=== PATIENT | female | born 1930 ===

== ENCOUNTER 2019-01-11 06:14 | Inpatient (IN) ==
[2019-01-11] MEDS ORDERED: Albuterol 2.5 MG/3 ML NEBULIZER IH ONE (06:37)
[2019-01-11] MEDS ORDERED: CeFAZolin Syr 2,000MG/20 ML 2,000 MG/20 ML SYRINGE IVPB ONE (06:37)
[2019-01-11] MEDS ORDERED: Ringers Solution, Lactated 1,000 ML IVC SCH (06:45)
[2019-01-11] MEDS ORDERED: *HR* FentaNYL (PF) 100 MCG/2 ML VIAL ONE (06:45)
[2019-01-11] MEDS ORDERED: *HR* Propofol 200 MG/20 ML VIAL IVP ONE (06:45)
[2019-01-11] MEDS ORDERED: *HR* Succinylcholine 200 MG/10 ML VIAL IVP ONE (06:46)
[2019-01-11] MEDS ORDERED: Lidocaine -MPF 4% 5 ML AMPUL ONE (06:46)
[2019-01-11] MEDS ORDERED: Lidocaine -MPF 2% 2 ML VIAL ONE ×2 (06:46→10:27)
[2019-01-11] MEDS ORDERED: Dexamethasone 4 MG/ML VIAL ONE (06:46)
[2019-01-11] MEDS ORDERED: Ondansetron 4 MG/2 ML VIAL ONE (06:46)
[2019-01-11] MEDS ORDERED: *HR* Phenylephrine 10 MG/ML VIAL ONE (06:54)
[2019-01-11] MEDS ORDERED: Famotidine 20 MG/2 ML VIAL IVP ONE (07:05)
[2019-01-11] MEDS ORDERED: *HR* Labetalol 20 MG/4 ML SYRINGE IVP PRN ×2 (07:05→13:10)
[2019-01-11] MEDS ORDERED: *HR* HYDROmorphone (PF) 1 MG/ML SYRINGE IVP PRN (07:05)
[2019-01-11] MEDS ORDERED: *HR* Promethazine 25 MG/ML VIAL IVP PRN ×2 (07:05→13:10)
[2019-01-11] MEDS ORDERED: Ondansetron 4 MG/2 ML VIAL IVP ONE (07:05)
[2019-01-11] MEDS ORDERED: Acetaminophen IV 1,000 MG/100 ML INFUS..BTL IVPB ONE (07:05)
[2019-01-11] MEDS ORDERED: *HR* OxyCODONE Immed Rel 5 MG TABLET PO PRN ×2 (07:05→13:10)
[2019-01-11] MEDS ORDERED: Heparin 1,000 UNITS/500 mL 2,000 ML ONE (07:20)
--- NOTE | 2019-01-11 07:20 | Anesthesia Evaluation PreOp ---
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, BLE weakness and initially speech problems but since resolved) Other Medical History: Renal (CKD stage 3), GERD Anesthesia History: No Prior Anesthetic Complications, Past Anesthesia : No Alcohol Use: none Drug use: none Medications and Allergies Amlodipine Besylate 5 mg PO DAILY 12/17/15 [History] Ferrous Sulfate [Iron] 325 mg PO BID 12/17/15 [History] Metoprolol [Lopressor] 50 mg PO DAILY 12/17/15 [History] Mirtazapine [Remeron] 15 mg PO HS 12/17/15 [History] Paroxetine [Paxil] 20 mg PO DAILY 12/17/15 [History] Sennosides/Docusate Sodium [Senna Plus] 1 each PO BID PRN 12/17/15 [History] Sertraline [Zoloft] 25 mg PO DAILY 12/17/15 [History] HYDROcodone/Acet 5/325 mg [[place] 5-325 mg] 1 tab PO Q6H PRN #25 tablet 12/22/15 [Rx] Omeprazole [PriLOSEC] 20 mg PO DAILY #30 capsule 12/22/15 [Rx] Acetaminophen [Tylenol] 650 mg PO BID PRN 12/27/18 [History] Allopurinol [Zyloprim 100 MG] 200 mg PO DAILY 12/27/18 [History] Aspirin [Lo-Dose Aspirin EC] 81 mg PO DAILY 12/27/18 [History] Cholecalciferol (D-3) [Vitamin D] 5,000 unit PO DAILY 12/27/18 [History] Clopidogrel [Plavix] 75 mg PO DAILY #30 tablet 12/27/18 [Rx] Cyanocobalamin/Folic AC/Vit B6 [Folbic Tablet] 1 each PO BID 12/27/18 [History] Doxycycline Hyclate [Vibramycin] 100 mg PO BID 12/27/18 [History] Furosemide [Lasix] 20 mg PO DAILY PRN 12/27/18 [History] Menthol/Zinc Oxide [Calmoseptine Ointment Packet] 3.5 gm TP TID PRN 12/27/18 [History] Potassium Chloride [Klor-Con 10] 10 meq PO DAILY 12/27/18 [History] Allergy/AdvReac Type Severity Reaction Status Date / Time Jdfdarg-[id number]-Mgf Reductase AdvReac Muscle Pain Verified 12/21/15 08:28 Inhibitor [Statins] - Meds/Allergy Pre-op Review Medications Reviewed: Yes Allergies Reviewed: Yes Beta Blockers on Current Med List: Yes (metoprolol) If Beta Blockers taken, Date/Time (Last Dose taken): 0900 01/10/2019 Anesthesia Results - Labs Laboratory Tests 01/08/19 01/08/19 01/08/19 11:40 11:40 11:40 WBC 8.4 Hgb 13.9 Hct 44.4 Plt Count 279 PT 10.5 INR 0.9 APTT 31.2 Sodium 141 Potassium 4.5 Chloride 105 Carbon Dioxide 27 BUN 32 H Creatinine 1.48 H Est GFR (Non-Af Amer) 33 L - Imaging EKG: report reviewed Additional studies: stress 12/2018 Impression: No ischemia or infarct on perfusion study. Stress LVEF >70%. Pharmacologic stress ECG non-diagnostic for ischemia. echo Impressions: LVEF 60%. Normal left ventricular size and systolic function. There is evidence of mild diastolic dysfunction of the left ventricle. RV size is not well visualized, grossly there is mild reduction in function. No significant valvular dysfunction. Estimated RVSP was 38 mmHg. Mild pulmonary hypertension. A linear echodensity consistent with a pacer lead was seen in the right atrium and right ventricle. Anesthesia Exam Vital Signs/O2 Sat/Glucose, Most Recent Temp Pulse Resp BP Pulse Ox 98.3 F 86 18 164/83 93 01/11/19 07:14 01/11/19 07:14 01/11/19 07:14 01/11/19 07:14 01/11/19 07:14 - HEENT Pupil (Motor): Pupils equal Mallampati: II Denture Type: Upper: Complete, Lower: Complete - WEIGHT AND BALANCE CONTROL AGENT LOC: Oriented - Cardiac Rhythm: Regular Murmur: None - Pulmonary Breath Sounds: bilateral Clear Respiratory Effort: Symmetrical Anesthesia Assess/Plan ASA Score: 3 Level of consciousness: Cooperative, Oriented Anesthetic Plan: General Monitoring Plan: A-Line Recovery Plan: PACU
[2019-01-11] MEDS ORDERED: *HR* Heparin 5,000 UNIT/ML VIAL ONE ×2 (07:21→07:59)
[2019-01-11] MEDS ORDERED: Vancomycin 1,000 MG, Sodium Chloride IRRigation 1,000 ML IR ONE (07:45)
--- NOTE | 2019-01-11 07:46 | History & Physical Report ---
Date of Encounter: 01/11/19 Time of Encounter: 07:28 24 Hour HP Update - Instructions Instructions: If the History and Physical is less than 30 days old and was completed prior to A.M. admission and or procedure and has NOT been updated on calendar day of procedure please complete this update prior to performing procedure. - Update Patient reports changes in Medical Condition: No Changes in examination, assessment, or condition: No Changes in Medication: No Preop tests/diagnostics Reviewed: Yes Surgery Remains Indicated: Yes Consent for Planned Operative Procedure(s) Verified: Yes - Pre-Operative Checklist Preoperative Checklist Indicated: Yes Prophylactic Antibiotic Ordered: Yes (vancomycin due to risk of MRSA) Home Medications Include Beta Nikhil: Yes Beta Nikhil Taken Today (Day of Surgery): Yes Beta Nikhil Taken Yesterday (Day Prior to Surgery): Yes Is VTE Prophylaxis Indicated?: Yes
--- NOTE | 2019-01-11 08:58 | Anesthesia Procedures ---
Date of Encounter: 01/11/19 Time of Encounter: 08:15 Procedures: Anesthesia - Arterial Line Size (Gauge): 20 Length (inches): 1 3/4 Technique Used: sterile prep, guide wire technique, direct puncture technique Post-Procedure: line taped into place, dry sterile dressing placed Patient tolerated procedure: well Complications: none Site: Radial L
[2019-01-11] MEDS ORDERED: Vancomycin 1,000 MG VIAL ONE (09:13)
--- NOTE | 2019-01-11 11:16 | Operative Note ---
Date of procedure: 01/11/19 Pre-op diagnosis: Peripheral vascular disease with ulceration Post-op diagnosis: same Procedure: 1. Left iliofemoral endarterectomy. 2. Left common femoral to below-knee popliteal artery bypass with 6 mm ring reinforced PTFE Distaflo mini-cuff graft Complications: None Anesthesia: GETA Surgeon: Rusty Puente Was there an engineer first assistant present: Yes Manager Retail Sales: Franck Mclean Estimated blood loss (cc): 50 Specimen: Left lower extremity plaque Condition: stable Disposition: PACU Procedure in Detail: Indications: The patient is an 80-year-old female with multiple medical comorbid disease who was found to have peripheral vascular disease with rest pain and a nonhealing left ankle ulcer. She was found to have a left superficial femoral and proximal popliteal artery occlusion. Procedure: The patient was identified in the preoperative area. The risks, benefits, and alternatives of the procedure were discussed. All questions were answered. The patient was taken to the operating room and placed in supine position on the operating room table. After the induction of general endotracheal anesthesia, he was cleaned and draped in normal sterile fashion. An oblique incision was made over the left groin sharply. Hemostasis was obtained with electrocautery. Through a process of blunt, sharp, and electrocautery dissection, the left femoral vessels were dissected circumferentially and surrounded with vessel loops. An incision was made on the left medial calf sharply. Hemostasis was obtained with electrocautery. Through a process of blunt, sharp, and electrocautery dissection, the left below-knee popliteal artery was dissected proximally and distally and surrounded with vessel loops. A graft was tunneled between the popliteal and femoral incisions. The patient received 5000 units of heparin intravenously. Additional heparin was given throughout the case to maintain adequate anticoagulation. The popliteal vessels were occluded and a longitudinal arteriotomy was made in the popliteal artery. The distal end of the graft was sutured in place with a running 6-0 Prolene, but not tied. Heparinized saline was infused into the lumen. Tension was then applied to the femoral artery loops. An arteriotomy was made in the common femoral artery and extended proximally to the external iliac artery. The patient was noted to have a dense, calcified irregular and pa rtially occlusive plaque within the common femoral artery. Due to the degree of stenosis and flow was diminished upon release of the vessel loop. Given this finding a dental Antoine was used to perform an iliofemoral endarterectomy. Distal endpoints were inspected and no elevated flaps were noted. Release of the vessel loop revealed strong pulsatile antegrade flow. The proximal end of the bypass graft was cut to fit the arteriotomy. The graft and sutured in place with a running 6-0 Prolene. After completing the anastomosis, the femoral arteries were flushed through the distal anastomosis portion of the graft. Heparin was then infused into the lumen. The graft was clamped with an atraumatic clamp. Thrombin and gelfoam were used at the proximal anastamosis. The distal arterial anastomosis suture line was completed. Prior to completing the closure, the popliteal arteries were flushed and reoccluded. Heparinized saline was infused into the lumen. The anastamosis was tied and then flow was restored. Polyphasic signals were noted distal to the distal anastomosis as well as at the posterior tibial artery. Wounds were irrigated with antibiotic-containing saline. Thrombin and gelfoam were used to aid in hemostasis. Platelet rich and platelet poor plasma were infused into the wounds. Meticulous hemostasis was obtained throughout the wound with electrocautery. Wounds were reapproximated with layers of 2-0 and 3-0 Vicryl. Skin was reapproximated with 3-0 Monocryl. Sterile dressing was applied. The patient was extubated and taken to recovery room in stable condition.
[2019-01-11] MEDS ORDERED: Protamine Sulfate 50 MG/5 ML VIAL IVP ONE ×2 (11:49→11:51)
[2019-01-11] MEDS ORDERED: OXYCODONE Oral CONC 10 MG/0.5 ML ORAL.SYG SL PRN ×2 (13:10)
[2019-01-11] MEDS ORDERED: Furosemide 20 MG TABLET PO PRN (13:10)
[2019-01-11] MEDS ORDERED: *HR* HYDROcodone/Acet 5/325 mg TABLET PO PRN (13:10)
[2019-01-11] MEDS ORDERED: Naloxone 0.4 MG/ML INJ IVP PRN (13:10)
[2019-01-11] MEDS ORDERED: Sennosides/Docusate Sodium TABLET PO PRN (13:10)
[2019-01-11] MEDS ORDERED: 0.9 % Sodium Chloride 1,000 ML IVC SCH (13:10)
[2019-01-11] MEDS ORDERED: Acetaminophen 325 MG TABLET PO PRN (13:10)
[2019-01-11] MEDS: *HR* Metoprolol 5 MG/5 ML VIAL IVP SCH ×2 (13:52→17:37)
--- NOTE | 2019-01-11 13:55 | Operative Note ---
Date of procedure: 01/11/19 Pre-op diagnosis: PAD/left ankle wound Post-op diagnosis: same Procedure: Left iliofemoral endarterectomy Left femoral to below-knee popliteal artery bypass graft with 6 mm PTFE Complications: None Anesthesia: GETA Surgeon: Rusty Puente Co-Surgeon: Franck Mclean Was there an assistant associate professor present: No Estimated blood loss (cc): 50 Specimen: Left lower extremity atherosclerotic plaque Condition: stable Disposition: PACU Procedure in Detail: History Vivian Noble is an 88-year-old white female with a non-healing left ankle wound and severe peripheral vascular occlusive disease. The patient was identified by angiogram to have a non-reconstructable lesion by endovascular means and she now comes to the operating room for direct bypass grafting. Procedure After informed consent was obtained the patient was taken the operating room. General endotracheal anesthesia was established. The left lower extremity was sterilely prepped and draped. A timeout protocol was performed per. A 2 team surgical approach was utilized for this procedure. This was done because of the patient's multiple comorbid conditions as well as the need for complex intraoperative decision-making and to minimize, cases associated with prolonged general anesthesia and to reduce blood loss. An incision was made in the left groin and a second incision made in the [id number]-wpx-[id number] popliteal artery simultaneously. Dissection was carried down to reveal diseased vessels are relatively small in size. The common femoral artery demonstrated dense and thick plaque formation. After controls obtained of these vessels a subsartorial tunnel was then created. Heparin was administered in a dose of 5000 units intravenously. After 3 minute delay the vessels were clamped. While the distal anastomosis was being created at the [id number] popliteal artery a left common femoral and external iliac artery endarterectomy was being performed. The graft selected was a 6 mm PTFE Distaflo graft. This was passed through the tunnel prior to the administration of heparin. After appropriate backbleeding and flushing the graft was opened. Pulsatile flow was restored into the popliteal system. Excellent Doppler signal was identified at the posterior tibial artery. The incisions were then irrigated with antibody containing solution. Marcaine was infiltrated into the wound edges. The incisions were then closed using absorbable suture. Dry sterile dressings were applied. There were no intraoperative complications. The patient was taken from the operating room to the recovery room in stable condition.
[2019-01-11] MEDS ORDERED: 0.9 % Sodium Chloride 500 ML IVC SCH (14:45)
--- NOTE | 2019-01-11 17:27 | Event Note ---
Date of Encounter: 01/11/19 Time of Encounter: 16:20 The patient was seen and examined. She is resting comfortably. She has no significant hematoma. Her compartments are soft. Her left posterior tibial signal is polyphasic. The patient received intravenous hydration. She was previously a clear diet tonight. She will have repeat labs in the morning. She will likely be discharged tomorrow if stable.
[2019-01-11] MEDS: Vitamin B Complex/Vit C/Vit E 1 EACH TABLET PO SCH (19:48)
[2019-01-11] MEDS ORDERED: Mirtazapine 15 MG TABLET PO SCH (21:00)
[2019-01-12] MEDS: *HR* Metoprolol 5 MG/5 ML VIAL IVP SCH ×2 (00:16→06:11)
[2019-01-12] MEDS ORDERED: 0.9 % Sodium Chloride 500 ML IVC ONE (05:49)
[2019-01-12] MEDS ORDERED: 0.9 % Sodium Chloride 500 ML ONE (05:53)
[2019-01-12] MEDS ORDERED: *HR* Heparin 5,000 UNIT/ML VIAL SQ SCH ×2 (06:00)
[2019-01-12 06:12] LABS: Basophils % 0.2 %; Immature Granulocytes % 0.3 % (0-4); Lymphocytes # 1.1 K/mcL (0.6-4.6); Lymphocytes % 8.4 %; Mean Corpuscular HGB Conc 30.4 g/dL (31.6-35.5); Mean Corpuscular Hemoglobin 30.3 pg (28.0-33.3); Mean Corpuscular Volume 99.6 fL (83.0-100.0); Mean Platelet Volume 11.6 fL (9.4-12.4); Neutrophils # 10.6 K/mcL (1.6-8.9); Platelet Count 172 K/mcL (140-400); Red Blood Count 2.71 M/mcL (3.82-4.97); Red Cell Distribution Width 15.9 % (11.5-14.5); Segmented Neutrophils % 83.1 %
[2019-01-12 06:19] LABS: Hemoglobin 8.2 g/dL (11.5-15.4)
[2019-01-12 06:28] LABS: Calcium 8.9 mg/dL (8.6-10.3); Potassium 5.4 mEq/L (3.5-5.1)
[2019-01-12] MEDS ORDERED: 0.9 % Sodium Chloride 1,000 ML IVC SCH (06:45)
[2019-01-12] MEDS: Vitamin B Complex/Vit C/Vit E 1 EACH TABLET PO SCH (07:58)
[2019-01-12] MEDS ORDERED: amLODIPine 5 MG TABLET PO SCH (09:00)
[2019-01-12] MEDS ORDERED: Aspirin Enteric Coated 81 MG Tablet PO SCH (09:00)
[2019-01-12] MEDS ORDERED: Cholecalciferol (D-3) 1,000 UNIT TABLET PO SCH (09:00)
[2019-01-12] MEDS ORDERED: 0.9 % Sodium Chloride 250 ML ONE (09:12)
--- NOTE | 2019-01-12 10:12 | Vascular/[facility] Progress Note ---
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 She is postoperative day #1 after left femoral-popliteal artery bypass grafting. She has polyphasic pedal signals. (2) CKD (chronic kidney disease), stage III Current Visit: Yes Status: Chronic The patient has chronic kidney disease stage III. She is a low urine output overnight. Her creatinine has increased. She is likely a depleted. Given her chronic kidney disease with elevated creatinine she will receive 1 unit of p acked red blood cells and intravenous fluids. We will recheck her creatinine in the afternoon. - Subjective Interval history: The patient is alert and comfortable. She denies any significant leg pain. She is tolerating a diet. She denies any chest pain or shortness of breath. Vital Signs, Last 4 Hours Temp Pulse Resp BP Pulse Ox 01/12/19 09:51 98.2 F 68 16 110/44 100 01/12/19 09:36 97.6 F 67 16 131/52 100 01/12/19 07:54 97.9 F 91 16 133/50 100 - Physical Examination General: Present: Conversant Neck: Absent: JVD Cardiac: Present: Reg Rate and Rhythm Lungs: Present: Normal Breath Sounds Neuro: Present: Alert and responsive, No focal deficits noted Vascular: Present: Pulse, diminished (Right pedal signals are biphasic), Pulse, normal (Left pedal signals are polyphasic), Surgical incisions (Clean, dry and intact without erythema or drainage, no significant hematoma, expected ecchymosis present, compartments soft) Abdomen: Present: Soft, Non-tender Skin: Present: No rashes noted on visualized skin Results 01/12/19 05:53 01/12/19 05:53 Lab Results, Last 24 hours 01/12/19 01/12/19 05:53 05:53 WBC 12.7 H D Hgb 8.2 L D Hct 27.0 L Plt Count 172 Sodium 141 Potassium 5.4 H Chloride 107 Carbon Dioxide 23 BUN 32 H Creatinine 2.16 H Glucose 110 H Calcium 8.9 Consult Discharge Plan - Plan Referrals: Rusty Puente MD [Partnered Physician] - 01/31/19 2:00 pm Dejah Felipe, [Primary Care Provider] -
[2019-01-12] MEDS ORDERED: Furosemide 20 MG/2 ML VIAL IVP ONE (12:10)
[2019-01-12 17:10] VITALS: BP 125/61
[2019-01-12 17:43] LABS: Calcium 8.5 mg/dL (8.6-10.3); Potassium 4.8 mEq/L (3.5-5.1)
--- NOTE | 2019-01-12 17:50 | Discharge Summary ---
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 Her wounds are healing well. She has no evidence of any bleeding. She has polyphasic pedal signals. She will be discharged today. (2) CKD (chronic kidney disease), stage III Priority: Secondary Status: Chronic Comments: The patient chronic kidney disease stage III with dehydration. She was hydrated with intravenous fluids and 1 unit of packed low blood cells. Her urine output and creatinine improved after hydration. She will have repeat chemistries next week. (3) Chronic disease anemia Priority: Secondary Status: Chronic Comments: The patient has chronic anemia with acute expected postoperative blood loss anemia.. Chronic kidney disease and rising creatinine she did receive a unit of packed red blood cells. She was hemodynamically stable without any evidence of ongoing blood loss during her hospitalization. (4) Hyperlipidemia Priority: Secondary Status: Chronic Qualifiers: Hyperlipidemia type: unspecified Qualified Code(s): E78.5 - Hyperlipidemia, unspecified (5) Essential hypertension Priority: Secondary Status: Chronic - Hospital Course Hospital course: Ms. Noble is a 88 year old female with multiple medical comorbidities who presented with peripheral vascular disease with ulceration. She is found have a left superficial femoral artery and popliteal artery occlusion. She was admitted and underwent a left femoral to below-knee popliteal artery bypass with femoral endarterectomy. The patient tolerated the procedure well. On postoperative day number was removed and dehydrated with decreased urine output and increased creatinine. She received packed red blood cells for chronic anemia with acute expected postoperative blood loss anemia as well as intravenous fluid rehydration. Her urine output increased significantly and a creatinine decreased. She was discharged on postoperative day #1 in stable condition without complication. - Time Spent with Patient Total time spent providing and/or coordinating discharge services: - Discharge Medications Prescriptions: Continued Metoprolol [Lopressor] 50 mg PO DAILY Ferrous Sulfate [Iron] 325 mg PO BID Amlodipine Besylate 5 mg PO DAILY Paroxetine [Paxil] 20 mg PO DAILY Mirtazapine [Remeron] 15 mg PO HS Sertraline [Zoloft] 25 mg PO DAILY Sennosides/Docusate Sodium [Senna Plus] 1 each PO BID PRN PRN Reason: Constipation Omeprazole [PriLOSEC] 20 mg PO DAILY #30 capsule Allopurinol [Zyloprim 100 MG] 200 mg PO DAILY Aspirin [Lo-Dose Aspirin EC] 81 mg PO DAILY Cholecalciferol (D-3) [Vitamin D] 5,000 unit PO DAILY Acetaminophen [Tylenol] 650 mg PO TID PRN PRN Reason: Pain Potassium Chloride [Klor-Con 10] 10 meq PO DAILY Furosemide [Lasix] 20 mg PO DAILY PRN PRN Reason: Edema Cyanocobalamin/Folic AC/Vit B6 [Folbic Tablet] 1 each PO BID Clopidogrel [Plavix] 75 mg PO DAILY #30 tablet HYDROcodone/Acet 5/325 mg [[place] 5-325 mg] 0.5 tab PO Q12H PRN PRN Reason: Pain Home Medications: Amlodipine Besylate 5 mg PO DAILY 12/17/15 [History] Ferrous Sulfate [Iron] 325 mg PO BID 12/17/15 [History] Metoprolol [Lopressor] 50 mg PO DAILY 12/17/15 [History] Mirtazapine [Remeron] 15 mg PO HS 12/17/15 [History] Paroxetine [Paxil] 20 mg PO DAILY 12/17/15 [History] Sennosides/Docusate Sodium [Senna Plus] 1 each PO BID PRN 12/17/15 [History] Sertraline [Zoloft] 25 mg PO DAILY 12/17/15 [History] Omeprazole [PriLOSEC] 20 mg PO DAILY #30 capsule 12/22/15 [Rx] Acetaminophen [Tylenol] 650 mg PO TID PRN 12/27/18 [History] Allopurinol [Zyloprim 100 MG] 200 mg PO DAILY 12/27/18 [History] Aspirin [Lo-Dose Aspirin EC] 81 mg PO DAILY 12/27/18 [History] Cholecalciferol (D-3) [Vitamin D] 5,000 unit PO DAILY 12/27/18 [History] Clopidogrel [Plavix] 75 mg PO DAILY #30 tablet 12/27/18 [Rx] Cyanocobalamin/Folic AC/Vit B6 [Folbic Tablet] 1 each PO BID 12/27/18 [History] Furosemide [Lasix] 20 mg PO DAILY PRN 12/27/18 [History] Potassium Chloride [Klor-Con 10] 10 meq PO DAILY 12/27/18 [History] HYDROcodone/Acet 5/325 mg [[place] 5-325 mg] 0.5 tab PO Q12H PRN 01/11/19 [History] Allergies/Adverse Reactions: Allergy/AdvReac Type Severity Reaction Status Date / Time Uyvvtog-[id number]-Uxx Reductase AdvReac Muscle Pain Verified 12/21/15 08:28 Inhibitor [Statins] Date of admission: 01/11/19 13:05 Primary care physician: Dejah Felipe DO Consults: 01/11/19 13:46 Consult to Mantel Craftsman [CONS] Routine Reason for Consult: return to [facility] living. Procedure(s) Performed: Left femoral to popliteal artery bypass, left lower extremity endarterectomy. Discharging clinician: Rusty Puente Anticipated date of discharge: 01/12/19 Exam Vital Signs, Last 4 Hours Temp Pulse Resp BP Pulse Ox 01/12/19 17:08 98.0 F 80 16 125/61 100 General: Present: Conversant, No Apparent Distress HEENT: Present: Pupils equal Cardiac: Present: Reg Rate and Rhythm Lungs: Present: Normal Breath Sounds Neuro: Present: Alert and responsive, Other (Motor and sensory exam stable throughout) Abdomen: Present: Soft Vascular: Present: Normal capillary refill, Pulse, normal (Left pedal signals polyphasic), Surgical incisions (clean, dry and intact without erythema or drainage), Other (Compartments soft). Absent: Cyanosis, Edema Skin: Present: No rashes noted on visualized skin - Patient Status Disposition: Transfer LTC Condition: Good Functional capacity at discharge: independent ambulation Overall status at discharge: patient is progressing back to baseline - Discharge Instructions Instructions: Femoropopliteal Bypass (DC) Follow Up With: Rusty Puente MD [Partnered Physician] - 01/31/19 2:00 pm Dejah Felipe DO [Primary Care Provider] - Additional Instructions: May remove bandages and shower on 01/13/2019. Wash wounds gently and pat to dry. No tub baths or swimming until 02/13/2019. Call Dr. Puente at [phone] with questions or concerns. - Diet and Activity Activity: increase activity as tolerated Diet: advance to your usual diet
--- NOTE | 2019-01-12 18:05 | Physician Discharge Referral ---
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 Priority: Primary Status: Chronic (2) CKD (chronic kidney disease), stage III Priority: Secondary Status: Chronic (3) Chronic disease anemia Priority: Secondary Status: Chronic (4) Hypertension Status: Chronic (5) Hyperlipidemia Status: Chronic - Transfer Medications Home Medications: Amlodipine Besylate 5 mg PO DAILY 12/17/15 [History] Ferrous Sulfate [Iron] 325 mg PO BID 12/17/15 [History] Metoprolol [Lopressor] 50 mg PO DAILY 12/17/15 [History] Mirtazapine [Remeron] 15 mg PO HS 12/17/15 [History] Paroxetine [Paxil] 20 mg PO DAILY 12/17/15 [History] Sennosides/Docusate Sodium [Senna Plus] 1 each PO BID PRN 12/17/15 [History] Sertraline [Zoloft] 25 mg PO DAILY 12/17/15 [History] Omeprazole [PriLOSEC] 20 mg PO DAILY #30 capsule 12/22/15 [Rx] Acetaminophen [Tylenol] 650 mg PO TID PRN 12/27/18 [History] Allopurinol [Zyloprim 100 MG] 200 mg PO DAILY 12/27/18 [History] Aspirin [Lo-Dose Aspirin EC] 81 mg PO DAILY 12/27/18 [History] Cholecalciferol (D-3) [Vitamin D] 5,000 unit PO DAILY 12/27/18 [History] Clopidogrel [Plavix] 75 mg PO DAILY #30 tablet 12/27/18 [Rx] Cyanocobalamin/Folic AC/Vit B6 [Folbic Tablet] 1 each PO BID 12/27/18 [History] Furosemide [Lasix] 20 mg PO DAILY PRN 12/27/18 [History] Potassium Chloride [Klor-Con 10] 10 meq PO DAILY 12/27/18 [History] HYDROcodone/Acet 5/325 mg [[place] 5-325 mg] 0.5 tab PO Q12H PRN 01/11/19 [History] Allergies/Adverse Reactions: Allergy/AdvReac Type Severity Reaction Status Date / Time [id number] Reductase AdvReac Muscle Pain Verified 05/01/16 08:28 Inhibitor [Statins] - Respiratory Orders Smoking Cessation: Smoking cessation has been advised. For more information, call the [place] Tobacco Quit Line at 1-037-XJYG-NOW. - Lab Orders Lab Orders: CBC (on 01/15/19 with results to primary physician and Dr. Puente.), Other (include drug levels w/frequency) (Chem 7 on 01/15/19 with results to primary physician and Dr. Puente.) - Ancillary Orders May use pressure relief devices daily prn, May go on DAVEY w/family/respon green party w/meds at nurse discretion PRN, May have alcoholic beverages - Advance Directives Living Will: No Power of Roll Coating Machine Operator for Health Care: No Code Status: Full Code - Mobility Orders Other (Activity as tolerated) - Rehabiliation Orders Rehab Potential: Fair Rehab Orders: ROM Exercises, Evaluation for Physical Therapy, Evaluation for Occupational Therapy - Treatments Skin tear care topically daily PRN per policy, May check for fecal impaction rectally daily PRN, Fleet enema rectally every other day PRN cleansing purposes List/Other: May remove bandages on 01/13/2019. Applied dry gauze to wounds daily for 7 days. Wash wounds gently and pat to dry. Continue with left ankle wound care as previously directed by wound therapy. - Diet Orders Regular CERTIFICATION: I certify that the transfer of the above named patient to an Extended Care Facility is necessary for the continuing treatment of the diagnosis listed. The above information is true and accurate reflection of patient's current condition. Confidential - Redisclosure prohibited without a patient's written consent.
== END 2019-01-12 19:25 | DRG 271 ==
LOC: SAMDAY 06:14 → 2NNU 13:05
PROVIDERS: ADMIT Surgery; ATTEND Surgery